=== PATIENT | female | born 1985 | race Two or more races ===

== ENCOUNTER 2022-12-29 09:45 | Emergency (ER) | payer BC ==
[~2022-12-29] VITALS: Ht 160 cm; Wt 77.0 kg
[2022-12-29 09:59] VITALS: BP 145/79; PULSE 85; RESP 18; TEMP 98.3; O2SAT 100
[2022-12-29 11:14] LABS: CLARITY URINE TURBID (CLEAR); COLOR URINE DARK YELLOW (YELLOW); GLUCOSE URINE NEGATIVE (NEGATIVE); KETONES URINE TRACE (NEGATIVE); LEUKOCYTE ESTERASE URINE 3+ (NEGATIVE); NITRITE URINE NEGATIVE (NEGATIVE); OCCULT BLOOD URINE NEGATIVE (NEGATIVE); PROTEIN URINE TRACE (NEGATIVE); SPECIFIC GRAVITY URINE 1.028 (1.005-1.030)
[2022-12-29 11:21] LABS: BASOPHILS % 0.4 % (0.0-2.0); HEMOGLOBIN. 13.1 g/dL (12.0-16.0); LYMPHOCYTES % 19.4 % (20.0-50.0); MEAN CORPUSCULAR HEMOGLOBIN 30.3 pg (28.0-32.0); MEAN CORPUSCULAR HGB CONC 32.7 g/dL (31.0-37.0); MEAN CORPUSCULAR VOLUME 92.5 fL (81.0-99.0); MEAN PLATELET VOLUME 7.5 fl (7.4-10.4); NEUTROPHILS % 73.2 % (40.0-76.0); PLATELET 400 x1000/uL (130-400); RED BLOOD CELL COUNT 4.32 mill/uL (4.2-5.4); RED CELL DISTRIBUTION WIDTH 12.9 % (11.6-14.6); WHITE BLOOD COUNT 9.6 x1000/uL (4.5-11.0)
[2022-12-29 11:55] LABS: MUCUS URINE 3+ /lpf (< = 2+); SQUAMOUS EPITHELIAL CELL URINE 3+ /lpf (RARE/1+)
[2022-12-29 11:56] LABS: BACTERIA URINE 4+
[2022-12-29 13:43] LABS: B-HCG QUANTITATIVE 10526 mIU/mL (<3); CALCIUM 9.3 mg/dL (8.7-10.4); CARBON DIOXIDE 23 mEq/L (21-32); CHLORIDE 106 mEq/L (98-107); CREATININE 0.7 mg/dL (0.6-1.0); GLUCOSE 101 mg/dL (70-105); POTASSIUM 4.1 mEq/L (3.5-5.1); SODIUM 138 mEq/L (136-145); UREA NITROGEN BLOOD 8 mg/dL (9-23)
== END 2022-12-29 14:53 | disposition home or self-care (01) ==
LOC: ER 09:45
DX: O23.41 Unspecified infection of urinary tract in pregnancy, first trimester (principal); O09.A1 Supervision of pregnancy with history of molar pregnancy, first trimester; Z3A.01 Less than 8 weeks gestation of pregnancy; Z90.49 Acquired absence of other specified parts of digestive tract; Z90.89 Acquired absence of other organs
CPT/HCPCS: 36415; 76801; 80048; 81003; 84702; 85025; 86850; 86900; 99284